=== PATIENT | female | born 1975 | race American Indian/Alaskan Native ===

== ENCOUNTER 2020-01-13 20:26 | Emergency (ER) | payer SELFPAY ==
[2020-01-13] MEDS ORDERED: ASPIRIN 325 MG TAB PO ONE (20:42)
--- NOTE | 2020-01-13 21:04 | XRay Report ---
CHEST 2 VIEWS INDICATION / CLINICAL INFORMATION: MAIN: Chest Pain; CP x 4-5 days . COMPARISON: None available. FINDINGS: SUPPORT DEVICES: None. HEART / MEDIASTINUM: No significant abnormality. LUNGS / PLEURA: No significant pulmonary or pleural abnormality. No pneumothorax. ADDITIONAL FINDINGS: No significant additional findings. IMPRESSION: 1. No acute findings. Signer Name: Everardo Avila MD Signed: 01/13/2020 8:59 PM Workstation Name: [id number]
[2020-01-13 21:15] LABS: Basophils % (Auto) 0.5 % (0.0-1.8); Eosinophils # (Auto) 0.4 K/mm3 (0.0-0.4); Eosinophils % (Auto) 3.4 % (0.0-4.3); Hematocrit 40.2 % (30.3-42.9); Hemoglobin 13.1 gm/dl (10.1-14.3); Lymphocytes # (Auto) 3.6 K/mm3 (1.2-5.4); Lymphocytes % (Auto) 34.6 % (13.4-35.0); Mean Corpuscular HGB Conc 33 % (30-34); Mean Corpuscular Volume 84 fl (79-97); Monocytes # (Auto) 0.7 K/mm3 (0.0-0.8); Monocytes % (Auto) 6.3 % (0.0-7.3); Platelet Count 201 K/mm3 (140-440); Red Blood Count 4.82 M/mm3 (3.65-5.03)
--- NOTE | 2020-01-13 21:20 | Emergency Department Report ---
ED Chest Pain HPI - General Chief Complaint: Chest Pain Stated Complaint: CHEST PAIN Time Seen by Provider: 01/13/20 21:06 Source: patient Mode of arrival: Ambulatory Limitations: No Limitations - History of Present Illness Initial Comments: 44-year-old -[place] female presents to the emergency room for 4 to 5- day history of intermittent chest pressure that feels like someone stepping on her chest and will have intermittent sharp pain. Not hard to breathe. Patient denies any headache change of vision fever shortness of breath nausea vomiting diarrhea. Patient states that she takes her hydrochlorothiazide 12.5 mg daily. Patient denies any radiation of pain to her back jaw or down her arms. Patient states that she does have a primary care provider Dr. Mast. Patient's blood pressure in triage was 189/111 heart rate 80 respiration 18 and 100% on room air. 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 Onset/Timin -: days(s) Pain Location: substernal, left chest, right chest Pain Radiation: none Severity: moderate Quality: heaviness Consistency: intermittent Improves With: nothing Worsens With: nothing re: denies: nausea, vomting, diaphoresis, dyspnea, sense of impending doom Other Symptoms: denies: cough, fever, syncope, rash, acid taste in mouth, leg swelling, palpitations, burping Treatments Prior to Arrival: none - Related Data Allergies Allergy/AdvReac Type Severity Reaction Status Date / Time No Known Allergies Allergy Unverified 01/13/20 20:39 Heart Score - HEART Score History: Slightly suspicious EKG: Normal Age: < 45 Risk factors: No known risk factors Troponin: < normal limit HEART Score: 0 ED Review of Systems ROS: Stated complaint: CHEST PAIN Other details as noted in HPI Comment: All other systems reviewed and negative Respiratory: denies: shortness of breath Cardiovascular: chest pain. denies: dyspnea on exertion, orthopnea Gastrointestinal: denies: abdominal pain, nausea, diarrhea Neurological: denies: headache, weakness, paresthesias ED Past Medical Hx - Past Medical History Hx Hypertension: Yes - Surgical History Past Surgical History?: No - Social History Smoking Status: Never Smoker Substance Use Type: None ED Physical Exam - General Limitations: No Limitations General appearance: alert, in no apparent distress - Head Head exam: Present: atraumatic, normocephalic - Eye Eye exam: Present: normal appearance - ENT ENT exam: Present: mucous membranes moist - Neck Neck exam: Present: normal inspection, full ROM - Respiratory Respiratory exam: Present: normal lung sounds bilaterally, chest wall tenderness (Right upper chest). Absent: respiratory distress, wheezes - Cardiovascular Cardiovascular Exam: Present: regular rate, normal rhythm. Absent: systolic murmur, diastolic murmur, rubs, gallop - GI/Abdominal GI/Abdominal exam: Present: soft, normal bowel sounds - Back Exam Back exam: Present: normal inspection - Neurological Exam Neurological exam: Present: alert, oriented X3 - Psychiatric Psychiatric exam: Present: normal affect, normal mood, other (Smiling and joking) - Skin Skin exam: Present: warm, dry, intact, normal color. Absent: rash ED Course Vital Signs 01/13/20 01/13/20 01/13/20 20:39 21:20 21:21 Temperature 97.5 F L 98.1 F Pulse Rate 80 67 66 Respiratory 18 12 13 Rate Blood Pressure 189/111 Blood Pressure 173/108 [Left] O2 Sat by Pulse 100 100 100 Oximetry 01/13/20 01/13/20 21:26 22:00 Temperature Pulse Rate 66 Respiratory Rate Blood Pressure 173/108 Blood Pressure 159/94 [Left] O2 Sat by Pulse Oximetry ITZ score - Itz Score Age > 65: (0) No Aspirin use within the Past 7 Days: (0) No 3 or more CAD Risk Factors: (0) No 2 or more Angina events in past 24 hrs: (0) No Known CAD with more than 50% Stenosis: (0) No Elevated Cardiac Markers: (0) No ST Deviation Greater than 0.5mm: (0) No ITZ Score: 0 ED Medical Decision Making - Lab Data Result diagrams: 01/13/20 21:05 01/13/20 21:05 - Radiology Data Radiology results: report reviewed Referring Physician:ED DOCPatient Name:MARIBEL CHRISTYPatient ID:[id number] of :[id number]:FemaleAccession:[id number] Date:[id number] Status:Finalized Findings [facility] [address] [place] [address] XRay Report Signed Patient: MARIBEL CHRISTY MR#: [id number] : 1975 Acct:[id number] Age/Sex: 44 / F ADM Date: 01/13/20 Loc: ED Attending Dr: Ordering Physician: COLUMBA PETE MD Date of Service: 01/13/20 Procedure(s): XR chest 1V ap Accession Number(s): [id number] cc: ED MD JUAN R Fluoro Time In Minutes: CHEST 2 VIEWS INDICATION / CLINICAL INFORMATION: MAIN: Chest Pain; CP x 4-5 days . COMPARISON: None available. FINDINGS: SUPPORT DEVICES: None. HEART / MEDIASTINUM: No significant abnormality. LUNGS / PLEURA: No significant pulmonary or pleural abnormality. No pneumo thorax. ADDITIONAL FINDINGS: No significant additional findings. IMPRESSION: 1. No acute findings. Signer Name: Everardo Avila MD Signed: 01/13/2020 8:59 PM Workstation Name: [id number] Transcribed By: ROSY Dictated By: Everardo Avila MD Electronically Authenticated By: Everardo Avila MD Signed Date/Time: 01/13/202058 DD/ 58 TD/TT: - Medical Decision Making 44-year-old -[place] female presents to the emergency room for 4 to 5- day history of intermittent chest pressure that feels like someone stepping on her chest and will have intermittent sharp pain. Not hard to breathe. Patient denies any headache change of vision fever shortness of breath nausea vomiting diarrhea. Patient states that she takes her hydrochlorothiazide 12.5 mg daily. Patient denies any radiation of pain to her back jaw or down her arms. Patient states that she does have a primary care provider Dr. Mast. Patient's blood pressure in triage was 189/111 heart rate 80 respiration 18 and 100% on room air. 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 This x-ray is negative, 2- troponins negative EKG patient reports that she feels better. I discussed with patient she can try taking some Tylenol ibuprofen that we will refer her to a forest ecologist. Discussed the patient she needs to increase her fluids and rest as she works for [employer] and has been working a lot and lifting heavy objects. Critical Care Time: No Critical care attestation.: If time is entered above; I have spent that time in minutes in the direct care of this critically ill patient, excluding procedure time. ED Disposition Clinical Impression: Atypical chest pain, Costochondritis, acute Disposition: DC-01 TO HOME OR SELFCARE Is pt being admited?: No Does the pt Need Aspirin: No Condition: Stable Instructions: Chest Pain (ED), Costochondritis (ED) Additional Instructions: Normal EKG normal chest x-ray labs are normal. Recommend to follow-up with a forest ecologist I have listed several below for your convenience. Please increase your fluid intake Tylenol or ibuprofen as needed for chest wall pain. Referrals: PRIMARY MD LUDIN [Primary Care Provider] - 3-5 Days [facility] [Provider Group] - 3-5 Days NAILA KHAN MD [Staff Physician] - 3-5 Days Forms: Work/School Release Form(ED)
[2020-01-13] MEDS ORDERED: hydrALAZINE 25 MG TAB PO ONE (21:23)
[2020-01-13 21:38] LABS: BUN/Creatinine Ratio 13; Blood Urea Nitrogen 10 mg/dL (7-17); Calcium 9.8 mg/dL (8.4-10.2); Hemolysis Index 44
[2020-01-14 00:39] VITALS: BP 149/87
== END 2020-01-14 00:40 | disposition home or self-care (01) ==
LOC: ED 20:26
DX: M94.0 Chondrocostal junction syndrome [Tietze] (principal); I10 Essential (primary) hypertension
CPT/HCPCS: 36415; 71045; 80048; 84484; 85025; 93005

== ENCOUNTER 2021-04-07 23:37 | Emergency (ER) | payer SELFPAY | END 2021-04-07 23:45 | disposition left against medical advice (07) | LOC: ED 23:37 | DX: R07.89 Other chest pain (principal); Z53.21 Procedure and treatment not carried out due to patient leaving prior to being seen by health care provider ==